=== PATIENT | male | born 1980 | race Caucasian/White ===

== ENCOUNTER 2018-11-15 07:32 | Day surgery (SDC) | payer OTHER, BC ==
[2018-11-06 12:11] VITALS: BMI 42.0
[2018-11-15] MEDS ORDERED: oxyCODONE HCL 10 MG SUSTAINED ACTING TABLET PO ONE (07:50)
[2018-11-15] MEDS ORDERED: BUPIVACAINE HCL/PF (5 MG/ML) 30 ML VIAL IJ ONE (10:44)
[2018-11-15] MEDS ORDERED: MIDAZOLAM HCL 2 MG/2 ML SINGLE DOSE VIAL ONE ×2 (10:44→11:46)
[2018-11-15] MEDS ORDERED: DEXAMETHASONE SOD PHOSPHATE/PF 10 MG/ML SDV ONE (10:44)
--- NOTE | 2018-11-15 11:03 | HP ---
History & Physical Update - History History: No Change - Physical Physical: No Change - Assessment Assessment: No Change - Plan Plan: No Change
[2018-11-15] MEDS ORDERED: LIDOCAINE 1%/EPI 1:100000 (20 ML MULTI DOSE VIAL) ONE (11:09)
[2018-11-15] MEDS ORDERED: methylPREDNISolone ACET (DEPO) 40 MG/1 ML VIAL ONE (11:09)
[2018-11-15] MEDS ORDERED: THROMBIN (RECOMBINANT) 5,000 UNIT VIAL TP ONE (11:09)
[2018-11-15] MEDS ORDERED: ceFAZolin SODIUM 1 GM VIAL ONE (12:03)
[2018-11-15] MEDS ORDERED: LIDOCAINE 1%/EPI 1:100000 (50 ML MULTI DOSE VIAL) INF ONE (12:11)
[2018-11-15] MEDS ORDERED: THROMBIN (BOVINE) 5,000 UNIT VIAL TP ONE (13:03)
[2018-11-15] MEDS ORDERED: GELATIN SPONGE,ABSORBABLE 1 GM PACKET TP ONE (13:03)
[2018-11-15] MEDS ORDERED: oxyCODONE HCL 5 MG TABLET PO PRN (13:21)
[2018-11-15] MEDS ORDERED: ONDANSETRON 4 MG/2 ML VIAL IVPUSH PRN (13:21)
[2018-11-15] MEDS ORDERED: LACTATED RINGERS SOLUTION 1,000 ML IV SCH (13:30)
--- NOTE | 2018-11-15 14:20 | OP ---
Operative Note - Note: Operative Date: 11/15/18 Pre-Operative Diagnosis: spinal stenosis, radiculopathy Operation: laminectomy of L4-L5 and L5-S1, microdisectomy Surgeon: Sage Rojas It Support Consultant: Florina Oconnor Anesthesiologist/PHOTO TECHNOLOGIST: Deonna Ferrell Anesthesia: Spinal Estimated Blood Loss (mls): 20 Fluid Volume Replaced (mls): 1,200 Operative Report Dictated: Yes
--- NOTE | 2018-11-15 14:22 | SURG ---
Surgery Software Intern Note Software Intern: Florina Oconnor PA-C Date of Service: 11/15/18 Diagnosis: spinal stenosis, radiculopathy Procedure: laminectomy of L4-L5 and L5-S1 with microdisectomy I was present for the entirety of the operative procedure. For further detail, please refer to operative report. Visit type - Case Type Case Type: Scheduled - Emergency Emergency Visit: No - New patient This patient is new to me today: Yes Date on this admission: 11/15/18
[2018-11-15] MEDS ORDERED: ONDANSETRON 4 MG/2 ML VIAL ONE (14:29)
--- NOTE | 2018-11-15 15:49 | OP ---
DATE OF OPERATION: 11/15/2018 PREOPERATIVE DIAGNOSIS: Spinal stenosis, L4-L5, L5-S1. POSTOPERATIVE DIAGNOSIS: Spinal stenosis, L4-L5, L5-S1. PROCEDURE PERFORMED: Laminectomy, L4-L5, L5-S1. SURGEON: Sage Rojas MD PERFORMANCE IMPROVEMENT SPECIALIST: BEBETO Moran ESTIMATED BLOOD LOSS: 50 mL. INTRAVENOUS FLUIDS: Per Anesthesia. ANESTHESIA: Spinal/TLIP. COMPLICATIONS: There were none. DISPOSITION: Patient brought to the PACU in stable condition. INDICATION FOR SURGERY: The patient is a 38-year-old gentleman who has been suffering from pain from his back down his right leg. He had also developed weakness in his right leg. An MRI was done. He had gone through an exhaustive course of treatment for this, which included medications, physical therapy, as well as injections. Unfortunately, his pain continued to persist despite all this. At this point, the risks, benefits, and alternatives were discussed and the patient consented to surgery. OPERATIVE NOTE: The patient was brought to the operating room by the Anesthesia staff. After appropriate patient identification was performed, spinal anesthesia was given, a TLIP block was given. Patient was able to position himself prone onto the OR table with all areas of bony prominences well added at this time. Two needles were placed into the back to ila off the L4-S1 segments. X-rays taken to confirm this was correct. Needle was removed and 10 mL of lidocaine with epinephrine was then injected into his back at this time. His back was prepped and draped in a sterile manner. At this point, a timeout was completed. An incision was made from the top of L4 down to the bottom of S1. Dissection was carried down to the fascia. Fascia was split open at this time. Appropriate retractors were then placed in. A spinal needle was placed onto the L5 lamina to ila off the L5-S1 level. X-rays taken to confirm this was correct. Needle was removed and the interspinous ligament at L4-5 and L5-S1 was removed. The microscope was brought in. The spinous process of L5 was removed. A bur was used to remove the lamina of L5. The flavum was identified as removed. The thecal sac was mobilized medially. A disk herniation was noted at L4-5 and L5-S1 and was removed. By the end of the procedure, the L5 and S1 nerve roots appeared to be well decompressed. All bleeding was well controlled at this time. Steroid was placed over the nerve root, Floseal was placed over that. The fascia was closed with a number 1 Vicryl suture. Subcutaneous tissues closed with 2-0 Vicryl suture. Skin was closed with 3-0 Monocryl suture. Dermabond was applied. Steri-Strips were applied. A sterile dressing was applied. The patient was placed supine on the OR bed and brought to the PACU in stable condition. Niko CARVAJAL/[id number]
[2018-11-15 17:48] VITALS: BP 137/78; PULSE 57; TEMP 98.1
--- NOTE | 2018-11-20 13:55 | PATH ---
Surgical Pathology Report Patient Name: JAMESON MENDEZ [facility]. Rec. #: [id number] /Age/Gender: 1980 (Age: 38) / M Account: [id number] Location: [facility] Taken: 11/15/2018 Received: 11/15/2018 Reported: 11/20/2018 Physicians: Sage Rojas M.D. Specimen(s) Received L4-5, L5-S1, DISC Clinical History Spinal stenosis Final Diagnosis L4-5, L5-S1, DISC, LAMINECTOMY: BENIGN INTERVERTEBRAL DISC TISSUE. Electronically Signed Kimberly Bledsoe M.D. Gross Description Received in formalin labeled "L4-5, L5-S1 disc," is a 2.5 x 2.0 x 0.3 cm aggregate of reyes fragments of fibrocartilaginous tissue. The specimen is submitted in toto in one cassette. /11/19/201811/19/2018
== END 2018-11-15 17:40 | disposition home or self-care (01) ==
LOC: FASU 07:32
PROVIDERS: ATTEND Orthopaedic Surgery Orthopaedic Surgery of the Spine
PROC: 01NB0ZZ Release Lumbar Nerve, Open Approach (ICD-10-PCS; principal; 2018-11-15 12:19)
DX: M48.061 Spinal stenosis, lumbar region without neurogenic claudication (principal); M48.07 Spinal stenosis, lumbosacral region
CPT/HCPCS: 72100-TC-FY; 88304-TC; 94760